=== PATIENT | female | born 1930 | race Caucasian/White ===

== ENCOUNTER 2018-04-28 18:08 | Emergency (ER) | payer OTHER ==
--- NOTE | 2018-04-28 21:30 | RAD REPORT ---
EXAM DESCRIPTION: RAD - Lumbar Spine 3 Views - 04/28/2018 8:04 pm CLINICAL HISTORY: Fall, back pain COMPARISON: None. FINDINGS: A three-view lumbar spine examination was performed. Patient has significant underlying osteopenia. No measurable compression fracture changes seen. There is slight irregularity to the superior endplate L2 without overall loss in height. Prominent mid and lower lumbar facet joint degenerative changes are present. There is a left convex scoliotic curvatur e mild in degree. Significant right lateral disc space narrowing and endplate spurring at L3-4. Overa ll loss in disc height at L4-5 and L5-S1. No lytic, sclerotic or expansile bony process. No pars defe cts identified. Aortic calcifications are present. IMPRESSION: Osteopenic and degenerative changes are present throughout the spine. Findings are most prominent right lateral L3-4 disc level and in the lower lumbar facet joints. Slight irregularity to the superior endplate L2 is present without overall loss in height. Concerns for marrow edema, occult bone process or pending fracture can be addressed with MR imaging.
--- NOTE | 2018-04-28 21:44 | ER ---
Nurse's Notes [facility] Name: Concepción Becker Age: 88 yrs Sex: Female : 1930 Arrival Date: 04/28/2018 Time: 18:19 Bed 26 Private MD: Joe Darling V Diagnosis: Contusion of lower back and pelvis Presentation: 04/28 18:21 Presenting complaint: EMS states: pt fell in bedroom at 1745 onto carpet, reports lower tl3 back pain with mild shoulder and neck pain, no LOC, no vomiting, AAO X 3, ambulated to the restroom at home after fall. Transition of care: on Hospice care for Pancreatic cancer. Onset of symptoms was April 28, 2018 at 17:45. Risk Assessment: Do you want to hurt yourself or someone else? Patient reports no desire to harm self or others. Initial Sepsis Screen: Does the patient meet any 2 criteria? No. Patient's initial sepsis screen is negative. Does the patient have a suspected source of infection? No. Patient's initial sepsis screen is negative. Care prior to arrival: None. 18:21 Method Of Arrival: EMS: [facility] tl3 18:21 Acuity: MARISSA 3 tl3 Triage Assessment: 18:28 General: Appears in no apparent distress. comfortable, slender, well groomed, well tl3 developed, well nourished, Behavior is calm, cooperative, appropriate for age. Pain: Complains of pain in lumbar area, left low back and right low back Pain currently is 4. out of 10 on a pain scale. Historical: - Allergies: 18:25 Ciprofloxacin; tl3 18:25 PENICILLINS; tl3 18:25 Sulfa (Sulfonamide Antibiotics); tl3 - Home Meds: 18:28 aspirin 81 mg Oral chew [Active]; losartan 100 mg oral tab 1 tab once daily [Active]; tl3 amlodipine 5 mg tab 1 tab once daily [Active]; Evista 60 mg Oral tab 1 tab once daily [Active]; tramadol 50 mg Oral tab 1 tab at night [Active]; 18:50 Promethazine 12.5 mg/0.1ml Oral .2 mL Topical for wrist every 4 Hours as needed for tl3 nausea [Active]; - PMHx: 18:25 Hypertension; low bone density; Pancreatic Cancer; tl3 - PSHx: 18:25 Appendectomy; Knee surgery; intestinal (blockage); tl3 - Immunization history:: Adult Immunizations up to date. - Social history:: Smoking status: Patient/guardian denies using tobacco, never smoked. - Ebola Screening: : Patient denies travel to an Ebola-affected area in the 21 days before illness onset. Screenin:20 Abuse screen: Denies threats or abuse. Nutritional screening: No deficits noted. tl3 Tuberculosis screening: No symptoms or risk factors identified. Fall Risk Fall in past 12 months (25 points). Assessment: 19:20 Reassessment: No changes from previously documented assessment. Patient and/or family tl3 updated on plan of care and expected duration. Pain level reassessed. Patient is alert, oriented x 3, equal unlabored respirations, skin warm/dry/pink. daughter at bedside, pt in no distress, no needs at this time. 19:55 Reassessment: Patient appears in no apparent distress at this time. No changes from tl3 previously documented assessment. Patient and/or family updated on plan of care and expected duration. Pain level reassessed. Patient is alert, oriented x 3, equal unlabored respirations, skin warm/dry/pink. pt in x ray. 22:28 Reassessment: Patient appears in no apparent distress at this time. No changes from tl3 previously documented assessment. Patient and/or family updated on plan of care and expected duration. Pain level reassessed. Patient is alert, oriented x 3, equal unlabored respirations, skin warm/dry/pink. Vital Signs: 19:20 BP 177 / 86; Pulse 83; Resp 18; Pulse Ox 98% on R/A; tl3 21:22 BP 173 / 69; Pulse 87; Resp 18; Pulse Ox 95% on R/A; mt 22:28 BP 165 / 76; Pulse 95; Resp 18; Pulse Ox 95% ; tl3 ED Course: 18:19 Patient arrived in ED. tl3 18:20 Joe Darling MD is Private Physician. tl3 18:20 Wendy Ordonez, AMAIRANI is Primary Nurse. tl3 18:24 Triage completed. tl3 19:11 Giorgi Justice MD is Attending Physician. gs 19:20 Patient has correct armband on for positive identification. Bed in low position. Call tl3 light in reach. Side rails up X2. Adult w/ patient. Pulse ox on. NIBP on. Door closed. Lights dimmed. Warm blanket given. Pillow given. 19:20 No provider procedures requiring assistance completed. Patient did not have IV access tl3 during this emergency room visit. 19:58 Patient moved to radiology via wheelchair. kc2 19:59 X-ray completed. Patient tolerated procedure well. kc2 19:59 Patient moved back from radiology. kc2 19:59 Lumbar Spine (3 Views) XRAY In Process Unspecified. EDMS 22:31 Arm band placed on left wrist. tl3 Administered Medications: 21:57 Drug: [place] 5 mg-325 mg 1 tabs Route: PO; tl3 22:30 Follow up: Response: No adverse reaction; Medication administered at discharge. tl3 Outcome: 21:43 Discharge ordered by . 22:28 Discharged to home via wheelchair. tl3 22:28 Condition: stable 22:28 Discharge instructions given to patient, family, Instructed on discharge instructions, follow up and referral plans. medication usage, Demonstrated understanding of instructions, follow-up care, medications, Prescriptions given X 1. 22:32 Patient left the ED. tl3 Signatures: Dispatcher [employer] EDMS Ling Montilla kc2 Vera Goins mt, Gregory, MD MD gs Lowrey, Tammy RN RN tl3
--- NOTE | 2018-04-28 21:44 | EDPHYS ---
Physician Documentation [facility] Name: Concepción Becker Age: 88 yrs Sex: Female : 1930 Arrival Date: 04/28/2018 Time: 18:19 Bed 26 Private MD: Joe Darling V ED Physician Giorgi Justice HPI: 04/28 21:39 This 88 yrs old Female presents to ER via EMS with complaints of Fall Injury. gs 21:39 Details of fall: The patient fell from an upright position. Onset: The symptoms/episode gs began/occurred just prior to arrival. Associated injuries: The patient sustained injury to the low back, contusion, pain. Severity of symptoms: At their worst the symptoms were moderate, in the emergency department the symptoms are unchanged. The patient has experienced similar episodes in the past, a few times. Historical: - Allergies: 18:25 Ciprofloxacin; tl3 18:25 PENICILLINS; tl3 18:25 Sulfa (Sulfonamide Antibiotics); tl3 - Home Meds: 18:28 aspirin 81 mg Oral chew [Active]; losartan 100 mg oral tab 1 tab once daily [Active]; tl3 amlodipine 5 mg tab 1 tab once daily [Active]; Evista 60 mg Oral tab 1 tab once daily [Active]; tramadol 50 mg Oral tab 1 tab at night [Active]; 18:50 Promethazine 12.5 mg/0.1ml Oral .2 mL Topical for wrist every 4 Hours as needed for tl3 nausea [Active]; - PMHx: 18:25 Hypertension; low bone density; Pancreatic Cancer; tl3 - PSHx: 18:25 Appendectomy; Knee surgery; intestinal (blockage); tl3 - Immunization history:: Adult Immunizations up to date. - Social history:: Smoking status: Patient/guardian denies using tobacco, never smoked. - Ebola Screening: : Patient denies travel to an Ebola-affected area in the 21 days before illness onset. ROS: 21:39 Cardiovascular: Negative for palpitations. gs 21:39 Neuro: Negative for syncope, near syncope. 21:39 All other systems are negative. Exam: 21:39 Head/Face: Normocephalic, atraumatic. Eyes: Pupils equal round and reactive to light, gs extra-ocular motions intact. Lids and lashes normal. Conjunctiva and sclera are non-icteric and not injected. Cornea within normal limits. Periorbital areas with no swelling, redness, or edema. ENT: Nares patent. No nasal discharge, no septal abnormalities noted. Tympanic membranes are normal and external auditory canals are clear. Oropharynx with no redness, swelling, or masses, exudates, or evidence of obstruction, uvula midline. Mucous membranes moist. Neck: Trachea midline, no thyromegaly or masses palpated, and no cervical lymphadenopathy. Supple, full range of motion without nuchal rigidity, or vertebral point tenderness. No Meningismus. Chest/axilla: Normal chest wall appearance and motion. Nontender with no deformity. No lesions are appreciated. Cardiovascular: Regular rate and rhythm with a normal S1 and S2. No gallops, murmurs, or rubs. Normal PMI, no JVD. No pulse deficits. Respiratory: Lungs have equal breath sounds bilaterally, clear to auscultation and percussion. No rales, rhonchi or wheezes noted. No increased work of breathing, no retractions or nasal flaring. Abdomen/GI: Soft, non-tender, with normal bowel sounds. No distension or tympany. No guarding or rebound. No evidence of tenderness throughout. Skin: Warm, dry with normal turgor. Normal color with no rashes, no lesions, and no evidence of cellulitis. MS/ Extremity: Pulses equal, no cyanosis. Neurovascular intact. Full, normal range of motion. Neuro: Awake and alert, GCS 15, oriented to person, place, time, and situation. Cranial nerves II-XII grossly intact. Motor strength 5/5 in all extremities. Sensory grossly intact. Cerebellar exam normal. Normal gait. 21:39 Constitutional: The patient appears alert, awake. 21:39 Back: vertebral tenderness, is appreciated at L2 and L3. Vital Signs: 19:20 BP 177 / 86; Pulse 83; Resp 18; Pulse Ox 98% on R/A; tl3 21:22 BP 173 / 69; Pulse 87; Resp 18; Pulse Ox 95% on R/A; mt 22:28 BP 165 / 76; Pulse 95; Resp 18; Pulse Ox 95% ; tl3 MDM: 19:24 Patient medically screened. 21:39 Differential diagnosis: contusion, fracture, sprain. Data reviewed: vital signs, nurses gs notes. Counseling: I had a detailed discussion with the patient and/or guardian regarding: radiology results. 04/28 19:25 Order name: Lumbar Spine (3 Views) XRAY; Complete Time: 21:36 gs Administered Medications: 21:57 Drug: [place] 5 mg-325 mg 1 tabs Route: PO; tl3 22:30 Follow up: Response: No adverse reaction; Medication administered at discharge. tl3 Disposition: 04/28/18 21:43 Discharged to Home. Impression: Contusion of lower back and pelvis. - Condition is Stable. - Discharge Instructions: Contusion. - Prescriptions for Tylenol- Codeine #3 300-30 mg Oral Tablet - take 1 tablet by ORAL route every 6 hours As needed; 6 tablet. - Medication Reconciliation Form, Thank You Letter, Antibiotic Education, Prescription Opioid Use form. - Follow up: Private Physician; When: 2 - 3 days; Reason: Re-evaluation by your physician. Signatures: Dispatcher [employer] EDGiorgi Bowers MD MD Wendy Ordonez RN RN tl3 Corrections: (The following items were deleted from the chart) 22:32 21:43 04/28/2018 21:43 Discharged to Home. Impression: Contusion of lower back and tl3 pelvis. Condition is Stable. Forms are Medication Reconciliation Form, Thank You Letter, Antibiotic Education, Prescription Opioid Use. Follow up: Private Physician; When: 2 - 3 days; Reason: Re-evaluation by your physician. gs
[2018-04-28] MEDS ORDERED: HYDROCODONE/APAP 10/325 TAB ONE (21:48)
[2018-04-28] MEDS ORDERED: HYDROCODONE/APAP 5/325 MG TAB ONE (21:50)
== END 2018-04-28 22:32 | disposition home or self-care (01) ==
LOC: ER 18:08
DX: S30.0XXA Contusion of lower back and pelvis, initial encounter (principal); W18.39XA Other fall on same level, initial encounter; Y93.9 Activity, unspecified; Y92.9 Unspecified place or not applicable; Z88.1 Allergy status to other antibiotic agents; Z88.0 Allergy status to penicillin; Z88.2 Allergy status to sulfonamides; I10 Essential (primary) hypertension; Z85.89 Personal history of malignant neoplasm of other organs and systems
CPT/HCPCS: 72100; 99284

== ENCOUNTER 2018-07-10 18:15 | Emergency (ER) | payer OTHER ==
[2018-07-10] MEDS ORDERED: NA CHLORIDE 0.9% 250 ML ONE (19:28)
[2018-07-10] MEDS ORDERED: NA CHLORIDE 0.9% 1,000 ML ONE (19:28)
[2018-07-10 19:42] LABS: Absolute Lymphocytes (CBC) 0.7 K/uL (0.7-4.9); Absolute Monocytes 0.5 K/uL (0.1-1.3); Absolute Neutrophil 5.8 K/uL (1.8-8.0); Basophils % 0.7 % (0-1.3); Hematocrit 36.4 % (36.0-45.0); Lymphocytes % 9.9 % (15.3-44.8); MCH 30.1 pg (27.0-35.0); MCV 90.1 fL (80-100); MPV 7.3 fL (7.6-11.3); Monocytes % 7.5 % (3.3-12.3); RBC Red Blood Cell Count 4.03 M/uL (3.86-4.86)
[2018-07-10 20:08] LABS: Albumin 2.9 g/dL (3.4-5.0); Bilirubin Direct 0.4 mg/dL (0-0.2); Bilirubin Total 0.7 mg/dL (0.2-1.0); Potassium 3.8 mmol/L (3.5-5.1); Protein, Total 7.1 g/dL (6.4-8.2)
[2018-07-10] MEDS ORDERED: CEFTRIAXONE/SWI 1gm 1 GM/10 ML SYR ONE (21:03)
[2018-07-10 21:05] LABS: Urine Bacteria LOADED /HPF (<20); Urine Culture Reflex Order NOT NEEDED; Urine RBC <5 /HPF (NONE SEEN)
[2018-07-10 21:07] LABS: Urine Blood 1+ (NEG); Urine Glucose NEGATIVE (NEG); Urine Protein 2+ (NEG); Urine Specific Gravity 1.015 (1.005-1.030); Urine pH 5.5 (5.0-7.0)
--- NOTE | 2018-07-10 21:32 | RAD REPORT ---
EXAM DESCRIPTION: CT - Abdomen Pelvis Wo Contrast - 07/10/2018 9:19 pm CLINICAL HISTORY: Abdominal pain. CONSTIPATION COMPARISON: CT ABDOMEN PELVIS WO CONTRAST dated 11/15/2008; Mri Abdomen W/Wo Cont dated 11/20/2017; Martha mbar Spine 3 Views dated 04/28/2018 TECHNIQUE: CT imaging of the abdomen and pelvis was performed without contrast. Solid organ and vasc ular assessment is limited due to lack of IV contrast. All CT scans are performed using dose optimization technique as appropriate and may include automated exposure control or mA/KV adjustment according to patient size. FINDINGS: Linear subsegmental atelectasis is seen in the right lung base posteriorly. The liver contains a large 15 cm stellate appearing mass, correlating with 11/20/2017 MR liver, howev er appearing enlarged on today's examination.The spleen and adrenal glands are normal. Left kidney de monstrates no stone or hydronephrosis. The right kidney demonstrates mild hydronephrosis. Irregular d ilatation of the pancreatic tail is noted. Small fat containing umbilical hernia. No bowel obstruction, free air, free fluid or abscess. Prominent sigmoid diverticulosis coli is prese nt without diverticulitis. Mild thickening of the rectum is seen with mild perirectal fat stranding, possibly indicating proctitis. Moderate lumbar degenerative changes are present.Compression fractures are present involving L2 and L 3, new since April 2018. IMPRESSION: [id number]-[id number] proctitis is possible. 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 Irregular dilatation of the pancreatic tail region compatible with known history of pancreatic neopla poli. Moderate compression fractures affecting L2 and L3, new since April 2018. A limited non-contrast examination was performed as detailed.
[2018-07-10] MEDS ORDERED: MAGNESIUM CITRATE 300 ML BOT ONE (21:56)
--- NOTE | 2018-07-10 22:08 | ER ---
Nurse's Notes [facility] Name: Concepción Becker Age: 88 yrs Sex: Female : 1930 Arrival Date: 07/10/2018 Time: 18:17 Bed 14 Private MD: Joe Darling V Diagnosis: Constipation;Urinary tract infection, site not specified Presentation: 07/10 18:31 Presenting complaint: Patient states: She is feeling constipated. States that her last aj1 BM was yesterday, she took a suppository but it hasn't helped. Reports that she keeps feeling like she has to go, but when she attempts to use the restroom nothing comes out. Patient states that she is on hospice for pancreatic cancer, but she could not get a hold of her hospice nurse. Transition of care: patient was not received from another setting of care. Onset of symptoms was July 10, 2018. Risk Assessment: Do you want to hurt yourself or someone else? Patient reports no desire to harm self or others. Initial Sepsis Screen: Does the patient meet any 2 criteria? No. Patient's initial sepsis screen is negative. Does the patient have a suspected source of infection? No. Patient's initial sepsis screen is negative. Care prior to arrival: None. 18:31 Method Of Arrival: Wheelchair aj1 18:31 Acuity: MARISSA 3 aj1 Triage Assessment: 18:38 General: Appears in no apparent distress. comfortable, Behavior is calm, cooperative, aj1 appropriate for age. Pain: Denies pain. Neuro: Level of Consciousness is awake, alert, obeys commands. Cardiovascular: Patient's skin is warm and dry. Respiratory: Airway is patent Respiratory effort is even, unlabored, Respiratory pattern is regular, symmetrical. GI: Reports constipation. Historical: - Allergies: 18:37 Ciprofloxacin; aj1 18:37 PENICILLINS; aj1 18:37 Sulfa (Sulfonamide Antibiotics); aj1 - Home Meds: 18:37 Hydrocodone-Acetaminophen Oral [Active]; Miralax 17 gram Oral pwpk 1 packet once daily aj1 [Active]; Gaviscon Oral [Active]; Lactulose Oral [Active]; aspirin 81 mg Oral chew 1 tab once daily [Active]; 18:38 losartan oral oral [Active]; Norvasc Oral [Active]; amlodipine oral [Active]; aj1 - PMHx: 18:37 Hypertension; low bone density; pancreatic cancer; aj1 - PSHx: 18:50 Appendectomy; Knee surgery; intestinal (blockage); rb1 - Immunization history:: Flu vaccine is up to date. - Social history:: Smoking status: Patient/guardian denies using tobacco. - Ebola Screening: : Patient denies travel to an Ebola-affected area in the 21 days before illness onset. Screenin:50 Abuse screen: Denies threats or abuse. Nutritional screening: No deficits noted. rb1 Tuberculosis screening: No symptoms or risk factors identified. Fall Risk None identified. Assessment: 18:42 Reassessment: Pt. is in the restroom. rb1 18:50 General: Appears in no apparent distress. comfortable, Behavior is calm, cooperative, rb1 Denies fever, Pt. has a DNR and is on hospice for pancreatic cancer.. Pain: Denies pain. Neuro: Level of Consciousness is awake, alert, obeys commands, Oriented to person, place, time, situation. Cardiovascular: Capillary refill < 3 seconds is brisk in bilateral fingers. Respiratory: Airway is patent Respiratory effort is even, unlabored, Respiratory pattern is regular, symmetrical. GI: Bowel sounds present X 4 quads. hypoactive in right upper quadrant, left upper quadrant, right lower quadrant and left lower quadrant Abd is soft X 4 quads. : No signs and/or symptoms were reported regarding the genitourinary system. Derm: Skin is pink, warm \T\ dry. 19:43 Reassessment: Patient appears in no apparent distress at this time. Patient is alert, jb4 oriented x 3, equal unlabored respirations, skin warm/dry/pink. GI: Bowel sounds present X 4 quads. Abd is soft and non tender X 4 quads. Patient currently denies abdominal pain. 20:43 Reassessment: Patient appears in no apparent distress at this time. Patient and/or jb4 family updated on plan of care and expected duration. Pain level reassessed. Patient is alert, oriented x 3, equal unlabored respirations, skin warm/dry/pink. 21:09 Reassessment: Pt taken toCT. jb4 22:39 Reassessment: Patient appears in no apparent distress at this time. Patient and/or jb4 family updated on plan of care and expected duration. Pain level reassessed. Patient is alert, oriented x 3, equal unlabored respirations, skin warm/dry/pink. D/C \T\ F/U instructions to pt. Denies questions or concerns at this time. Vital Signs: 18:38 BP 158 / 80; Pulse 88; Resp 18; Temp 97.1(TE); Pulse Ox 95% on R/A; Weight 65.77 kg aj1 (R); Height 5 ft. 6 in. (167.64 cm) (R); Pain 0/10; 19:39 BP 172 / 95; Pulse 83; Resp 18; Pulse Ox 96% on R/A; Pain 0/10; aa1 21:47 BP 138 / 72; Pulse 102; Resp 18; Pulse Ox 97% on R/A; aa1 18:38 Body Mass Index 23.40 (65.77 kg, 167.64 cm) aj1 ED Course: 18:17 Patient arrived in ED. as 18:17 Joe Darling MD is Private Physician. as 18:34 Triage completed. aj1 18:38 Arm band placed on Patient placed in an exam room. aj1 18:50 Patient has correct armband on for positive identification. Placed in gown. Bed in low rb1 position. Call light in reach. Side rails up X 1. Pulse ox on. NIBP on. 18:51 Isabel Vargas, AMAIRANI is Primary Nurse. rb1 18:53 Kenneth Ludwig PA is PHCP. cp 18:53 Rajan Small MD is Attending Physician. cp 19:00 Report given to AMAIRANI Rodriguez. rb1 19:04 Yasmany Leyva, AMAIRANI is Primary Nurse. jb4 19:10 Inserted saline lock: 22 gauge in left antecubital area, using aseptic technique. Blood jb4 collected. 19:10 Initial lab(s) drawn, by ga, sent to lab. jb4 21:10 Inserted saline lock: 22 gauge in right antecubital area, using aseptic technique. jb4 21:[address] via stretcher. cw1 21:19 Abdomen In Process Unspecified. EDMS 22:07 Joe Darling MD is Referral Physician. cp 22:39 Cleaned of incontinence. jb4 22:39 No provider procedures requiring assistance completed. IV discontinued, intact, jb4 bleeding controlled. Administered Medications: 19:29 Drug: NS 0.9% 250 ml Route: IV; Rate: bolus; Site: left antecubital; jb4 20:00 Follow up: Response: No adverse reaction; IV Status: Completed infusion jb4 19:29 Drug: NS 0.9% 1000 ml Route: IV; Rate: 75 ml/hr; Site: left antecubital; jb4 22:20 Follow up: Response: No adverse reaction; IV Status: Completed infusion jb4 21:47 Drug: Rocephin 1 grams Route: IV; Rate: calculated rate; Site: right antecubital; jb4 21:47 Follow up: IV Status: Completed infusion; Given IVP per pharmacy protocol. jb4 22:15 Follow up: Response: No adverse reaction jb4 21:55 Drug: Magnesium Citrate Liquid 300 ml Route: PO; jb4 22:37 Follow up: Response: No adverse reaction jb4 22:12 Drug: Zofran 4 mg Route: IVP; Site: right antecubital; jb4 22:37 Follow up: Response: No adverse reaction; Nausea is decreased jb4 Intake: Outcome: 22:07 Discharge ordered by MD. cp 22:43 Discharged to home ambulatory. jb4 22:43 Condition: stable jb4 22:43 Discharge instructions given to patient, Instructed on discharge instructions, follow up and referral plans. medication usage, Demonstrated understanding of instructions, follow-up care, medications, Prescriptions given X 2. 22:43 Patient left the ED. jb4 Addendum: 07/13/2018 19:16 Addendum: Culture Results: Positive urine culture. Bacteria is resistant to, has i w intermediate sensitivity, or is not tested against prescribed antibiotics. Report given to RAHEEM for further evaluation and then to information clerk brokerage for follow up with patient. Phone call Attempt #1 pt reports symptoms have improved, now further action needed. Signatures: Dispatcher [employer] EDMS Christina Gilbert RN RN aj1 Jennifer Flores RN RN Teena Montenegro Irene, Claudia Caro RN cw1 Kenneth uLdwig PA PA cp Barber, Rebecca, RN RN rb1 Yasmany Leyva RN RN jb4 Corrections: (The following items were deleted from the chart) 07/10 18:39 18:31 Presenting complaint: Patient states: She is feeling constipated. States that her aj1 last BM was yesterday, she took a suppository but it hasn't helped. Reports that she keeps feeling like she has to go, but when she attempts to use the restroom nothing comes out aj1
--- NOTE | 2018-07-10 22:08 | EDPHYS ---
Physician Documentation [facility] Name: Concepción Becker Age: 88 yrs Sex: Female : 1930 Arrival Date: 07/10/2018 Time: 18:17 Bed 14 Private MD: Joe Darling V ED Physician Rajan Small HPI: 07/10 19:14 This 88 yrs old Female presents to ER via Wheelchair with complaints of cp Constipation. 19:14 The patient presents with constipation. cp 19:14 Onset: The symptoms/episode began/occurred this morning. Associated signs and symptoms: cp Pertinent positives: blood when wiping, Pertinent negatives: nausea and vomiting, anorexia, chest pain, diarrhea, dysuria, fever. Historical: - Allergies: 18:37 Ciprofloxacin; aj1 18:37 PENICILLINS; aj1 18:37 Sulfa (Sulfonamide Antibiotics); aj1 - Home Meds: 18:37 Hydrocodone-Acetaminophen Oral [Active]; Miralax 17 gram Oral pwpk 1 packet once daily aj1 [Active]; Gaviscon Oral [Active]; Lactulose Oral [Active]; aspirin 81 mg Oral chew 1 tab once daily [Active]; 18:38 losartan oral oral [Active]; Norvasc Oral [Active]; amlodipine oral [Active]; aj1 - PMHx: 18:37 Hypertension; low bone density; pancreatic cancer; aj1 - PSHx: 18:50 Appendectomy; Knee surgery; intestinal (blockage); rb1 - Immunization history:: Flu vaccine is up to date. - Social history:: Smoking status: Patient/guardian denies using tobacco. - Ebola Screening: : Patient denies travel to an Ebola-affected area in the 21 days before illness onset. ROS: 19:14 Eyes: Negative for injury, pain, redness, and discharge. cp 19:14 Constitutional: Negative for body aches, chills, fever, poor PO intake. 19:14 ENT: Negative for drainage from ear(s), ear pain, sore throat, difficulty swallowing, difficulty handling secretions. 19:14 Cardiovascular: Negative for chest pain, edema, palpitations. 19:14 Respiratory: Negative for cough, shortness of breath, wheezing. 19:15 Abdomen/GI: Positive for constipation, rectal bleeding, Negative for abdominal pain, cp nausea, vomiting, and diarrhea, anorexia, black/tarry stool, bowel incontinence. 19:15 Back: Negative for pain at rest, pain with movement, radiated pain. 19:15 : Negative for urinary symptoms. 19:15 Skin: Negative for cellulitis, rash. 19:15 All other systems are negative. cp Exam: 19:20 Constitutional: The patient appears in no acute distress, alert, awake, cp non-diaphoretic, non-toxic, well developed, frail. 19:20 Head/Face: Normocephalic, atraumatic. cp 19:20 Eyes: Periorbital structures: appear normal, Conjunctiva: normal, no exudate, no injection, Sclera: no appreciated abnormality, Lids and lashes: appear normal, bilaterally. 19:20 ENT: External ear(s): are unremarkable, Nose: is normal, Mouth: Lips: moist, Oral mucosa: moist, Posterior pharynx: is normal, airway is patent, no erythema, no exudate, Voice: is normal. 19:20 Chest/axilla: Inspection: normal, Palpation: is normal, no crepitus, no tenderness. 19:20 Cardiovascular: Rate: normal, Rhythm: regular. 19:20 Respiratory: the patient does not display signs of respiratory distress, Respirations: normal, no use of accessory muscles, no retractions, no splinting, no tachypnea, Breath sounds: are clear throughout, no decreased breath sounds, no stridor, no wheezing. 19:20 Abdomen/GI: Inspection: abdomen appears normal, Bowel sounds: active, all quadrants, Palpation: soft, in all quadrants, nontender, in all quadrants, rebound tenderness, is not appreciated, involuntary guarding, is not appreciated. 19:20 Back: pain, is absent. 19:20 Skin: cellulitis, is not appreciated, no rash present. 19:20 Neuro: Orientation: to person, place \T\ time. Mentation: lucid, able to follow commands. Vital Signs: 18:38 BP 158 / 80; Pulse 88; Resp 18; Temp 97.1(TE); Pulse Ox 95% on R/A; Weight 65.77 kg aj1 (R); Height 5 ft. 6 in. (167.64 cm) (R); Pain 0/10; 19:39 BP 172 / 95; Pulse 83; Resp 18; Pulse Ox 96% on R/A; Pain 0/10; aa1 21:47 BP 138 / 72; Pulse 102; Resp 18; Pulse Ox 97% on R/A; aa1 18:38 Body Mass Index 23.40 (65.77 kg, 167.64 cm) aj1 MDM: 18:54 Patient medically screened. cp 20:00 Differential diagnosis: bowel obstruction, urinary tract infection, constipation, fecal cp impaction. 22:05 Data reviewed: vital signs, nurses notes, lab test result(s), radiologic studies, CT cp scan. 22:05 Counseling: I had a detailed discussion with the patient and/or guardian regarding: the cp historical points, exam findings, and any diagnostic results supporting the discharge/admit diagnosis, lab results, radiology results, to return to the emergency department if symptoms worsen or persist or if there are any questions or concerns that arise at home. Response to treatment: Improved. Patient reports having several bowel movements while in ED. CT abdomen/pelvis negative for obstruction or fecal impaction. Will discharge to home with recommendation for stool softner. 07/10 19:00 Order name: Amylase, Serum; Complete Time: 20:39 cp 07/10 19:00 Order name: Basic Metabolic Panel; Complete Time: 20:38 cp 07/10 19:00 Order name: CBC with Diff; Complete Time: 20:38 cp 07/10 19:00 Order name: Creatinine for Radiology; Complete Time: 20:38 cp 07/10 19:00 Order name: Hepatic Function; Complete Time: 20:39 cp 07/10 19:00 Order name: Lipase; Complete Time: 20:39 cp 07/10 19:00 Order name: Urine Microscopic Only; Complete Time: 21:09 cp 07/10 20:40 Order name: Urine Dipstick--Ancillary (enter results); Complete Time: 21:09 mw2 07/10 20:41 Order name: Urine Culture cp 07/10 21:08 Order name: Abdomen ; Complete Time: 21:37 EDMS 07/10 19:00 Order name: IV Saline Lock; Complete Time: 19:29 cp 07/10 19:00 Order name: Labs collected and sent; Complete Time: 19:29 cp 07/10 19:00 Order name: Urine Dipstick-Ancillary (obtain specimen); Complete Time: 20:43 cp Administered Medications: 19:29 Drug: NS 0.9% 250 ml Route: IV; Rate: bolus; Site: left antecubital; jb4 20:00 Follow up: Response: No adverse reaction; IV Status: Completed infusion jb4 19:29 Drug: NS 0.9% 1000 ml Route: IV; Rate: 75 ml/hr; Site: left antecubital; jb4 22:20 Follow up: Response: No adverse reaction; IV Status: Completed infusion jb4 21:47 Drug: Rocephin 1 grams Route: IV; Rate: calculated rate; Site: right antecubital; jb4 21:47 Follow up: IV Status: Completed infusion; Given IVP per pharmacy protocol. jb4 22:15 Follow up: Response: No adverse reaction jb4 21:55 Drug: Magnesium Citrate Liquid 300 ml Route: PO; jb4 22:37 Follow up: Response: No adverse reaction jb4 22:12 Drug: Zofran 4 mg Route: IVP; Site: right antecubital; jb4 22:37 Follow up: Response: No adverse reaction; Nausea is decreased jb4 Disposition: 07/11 10:03 Co-signature as Attending Physician, Rajan Small MD. rn Disposition: 07/10/18 22:07 Discharged to Home. Impression: Constipation, Urinary tract infection, site not specified. - Condition is Stable. - Discharge Instructions: Constipation, Adult, Urinary Tract Infection, Adult. - Prescriptions for Keflex 500 mg Oral Capsule - take 1 capsule by ORAL route every 8 hours for 10 days; 30 capsule. Miralax 17 gram/dose Oral - take 1 packet by ORAL route once daily dilute powder in 8 ounces of water or juice; 30 packet. - Medication Reconciliation Form, Thank You Letter, Antibiotic Education, Prescription Opioid Use form. - Follow up: Joe Darling MD; When: 1 - 2 days; Reason: Recheck today's complaints. - Problem is new. - Symptoms have improved. Signatures: Dispatcher [employer] EDChristina Santaigo RN RN aj1 Rajan Small MD MD rn Page, Corey, PA PA cp Barber, Rebecca, RN RN Yasmany Garza RN RN jb4 Corrections: (The following items were deleted from the chart) 07/10 19:27 07/09 19:18 Constitutional: The patient appears in no acute distress, alert, awake, cp non-diaphoretic, non-toxic, well developed, well nourished, cp 07/10 19:07/09 19:18 Head/Face: Normocephalic, atraumatic. cp cp 07/10 19:07/09 19:18 Eyes: Periorbital structures: appear normal, Conjunctiva: normal, no cp exudate, no injection, Sclera: no appreciated abnormality, Lids and lashes: appear normal, bilaterally, cp 07/10 19:07/09 19:18 ENT: External ear(s): are unremarkable, Nose: is normal, Mouth: Lips: cp moist, Oral mucosa: pink and intact, moist, Posterior pharynx: is normal, airway is patent, no erythema, no exudate, cp 07/10 19:07/09 19:18 Chest/axilla: Inspection: normal, Palpation: is normal, no crepitus, no cp tenderness, cp 07/10 19:07/09 19:18 Cardiovascular: Rate: normal, Rhythm: regular, cp cp 07/10 19:07/09 19:18 Respiratory: the patient does not display signs of respiratory distress, cp Respirations: normal, no use of accessory muscles, no retractions, no splinting, no tachypnea, labored breathing, is not present, Breath sounds: are clear throughout, no decreased breath sounds, no stridor, no wheezing, cp 07/10 19:07/09 19:18 Abdomen/GI: Inspection: abdomen appears normal, Bowel sounds: active, all cp quadrants, Palpation: soft, in all quadrants, nontender, in all quadrants, rebound tenderness, is not appreciated, involuntary guarding, is not appreciated, 07/10 21:08 19:01 Abdomen Pelvis W [id number] ordered. EDMS EDMS 22:43 22:07 07/10/2018 22:07 Discharged to Home. Impression: Constipation; Urinary tract jb4 infection, site not specified. Condition is Stable. Forms are Medication Reconciliation Form, Thank You Letter, Antibiotic Education, Prescription Opioid Use. Follow up: Joe Darling; When: 1 - 2 days; Reason: Recheck today's complaints. Problem is new. Symptoms have improved. cp
[2018-07-10] MEDS ORDERED: ONDANSETRON 4 MG/2 ML VIAL ONE (22:16)
== END 2018-07-10 22:43 | disposition home or self-care (01) ==
LOC: ER 18:15
DX: N39.0 Urinary tract infection, site not specified (principal); I10 Essential (primary) hypertension; Z85.07 Personal history of malignant neoplasm of pancreas; Z79.82 Long term (current) use of aspirin; Z88.0 Allergy status to penicillin; Z88.1 Allergy status to other antibiotic agents; Z88.2 Allergy status to sulfonamides
CPT/HCPCS: 36415; 74176; 80048; 80076; 82150; 83690; 85025; 87077; 87086; 87088; 87186; 96361; 96374; 96375; 99284; J0696; J2405; J7030; 81003; 81015; 96365